=== PATIENT | female | born 1995 | race Caucasian/White ===

== ENCOUNTER 2016-12-19 14:06 | Emergency (ER) | payer SELFPAY ==
[~2016-12-19] VITALS: Ht 157.5 cm; Wt 52.7 kg
[2016-12-19 15:22] LABS: ADD MIUA? NO; BILIRUBIN NEGATIVE; BLOOD NEGATIVE; COLOR STRAW ((YELLOW)); GLUCOSE (STRIP) NEGATIVE; KETONES NEGATIVE; LEUKOCYTES NEGATIVE; NITRITE NEGATIVE; PROTEIN (STRIP) NEGATIVE; SPECIFIC GRAVITY 1.006 (1.000-1.030); UCUL ADDED? NO; UROBILINOGEN 0.2 MG/DL (0.2-1.0)
[2016-12-19 15:30] LABS: INTERNAL CONTROL VALID? YES
[2016-12-19] MEDS ORDERED: ZOFRAN ODT4 MG PO (17:56)
[2016-12-19 18:12] VITALS: BP 121/70
== END 2016-12-19 18:12 | disposition home or self-care (01) ==
LOC: EME 14:06
PROVIDERS: Emergency Medicine
DX: O99.89 Other specified diseases and conditions complicating pregnancy, childbirth and the puerperium (principal); S39.91XA Unspecified injury of abdomen, initial encounter; R11.0 Nausea; V49.40XA Driver injured in collision with unspecified motor vehicles in traffic accident, initial encounter; Y92.410 Unspecified street and highway as the place of occurrence of the external cause; Z3A.01 Less than 8 weeks gestation of pregnancy; O99.351 Diseases of the nervous system complicating pregnancy, first trimester; G40.909 Epilepsy, unspecified, not intractable, without status epilepticus
CPT/HCPCS: 76801; 81003; 84702; 84703; 99281; 99284